=== PATIENT | female | born 1990 | race Two or more races ===

== ENCOUNTER 2022-06-13 03:08 | Emergency (ER) | payer OTHER ==
[~2022-06-13] VITALS: Ht 170.2 cm; Wt 63.5 kg
[2022-06-13] MEDS ORDERED: TOBRADEX EYE DR10 ML OP (04:34)
[2022-06-13] MEDS ORDERED: EQ EYE ALLERGY15 ML OP (04:34)
== END 2022-06-13 04:44 | disposition home or self-care (01) ==
LOC: ER 03:08
DX: H10.9 Unspecified conjunctivitis (principal)